=== PATIENT | female | born 1965 ===

== ENCOUNTER 2024-12-01 07:57 | Day surgery (SDC) | payer OTHER ==
[2024-11-23 09:34] VITALS: BP 125/68
[~2024-12-01] VITALS: Ht 162.6 cm; Wt 68.9 kg
[~2024-12-01 07:57] MED LIST: ATORVASTATIN CA40 MG PO; BYSTOLIC5 MG PO; ENALAPRIL MALEAT5 MG PO; JARDIANCE10 MG PO; LANTUS SOL100 UNIT/1; METFORMIN HCL1000 M2 PO; SYNTHROID75 MCG PO; TRADJENTA5 MG PO
[2024-12-01] MEDS ORDERED: CLINDAMYCIN PHOSPHATE 150 MG/ML (600mg) ONE (11:15)
[2024-12-01] MEDS ORDERED: DEXAMETHASONE SODIUM PHOSPHATE 4 MG/ML VIAL ONE (11:16)
[2024-12-01] MEDS ORDERED: KETOROLAC TROMETHAMINE 30 MG VIAL ONE (14:18)
== END 2024-12-01 16:45 | disposition home or self-care (01) ==
LOC: O/R 07:57 → SURH 07:57 → CIR.AMB 07:57 → EDSTATUS 08:15 → SURH 08:15 → CIR.AMB 16:45 → O/R 16:45
PROVIDERS: ATTEND Surgery
DX: C73 Malignant neoplasm of thyroid gland (principal); Z88.0 Allergy status to penicillin

== ENCOUNTER 2025-02-08 08:10 | Day surgery (SDC) | payer OTHER ==
[2025-02-05 09:02] VITALS: BP 118/68
[~2025-02-08] VITALS: Ht 162.6 cm; Wt 64.0 kg
[2025-02-08] MEDS ORDERED: CLINDAMYCIN PHOSPHATE 150 MG/ML (600mg) IV ONE (11:15)
[2025-02-08] MEDS ORDERED: DEXAMETHASONE SODIUM PHOSPHATE 4 MG/ML VIAL IV ONE (11:15)
[2025-02-08] MEDS ORDERED: MORPHINE SULFATE 4 MG/ML VIAL IV ONE (12:55)
== END 2025-02-08 17:05 | disposition home or self-care (01) ==
LOC: CIR.AMB 08:10 → SURH 08:10 → O/R 08:10 → SURH 11:15 → EDSTATUS 11:15 → SURH 12:15 → O/R 13:39 → SURH 13:39 → O/R 15:29 → CIR.AMB 17:05
PROVIDERS: ATTEND Surgery
DX: C73 Malignant neoplasm of thyroid gland (principal); E06.3 Autoimmune thyroiditis; R59.0 Localized enlarged lymph nodes